=== PATIENT | female | born 1955 | race African-American/Black ===

== ENCOUNTER 2016-05-30 00:02 | Inpatient (IN) | payer OTHER ==
[~2016-05-30] VITALS: Ht 168.9 cm; Wt 58.1 kg
[2016-05-30 00:28] LABS: BASO % 0 % (0-3); EOS % 0 % (0-3); HEMATOCRIT 35.8 % (36.0-47.0); LYMPH # 0.6 x10^3/uL (1.0-4.8); LYMPH % 17 % (24-48); MEAN CORPUSCULAR HEMOGLOBIN 34 pg (25-35); MEAN CORPUSCULAR HGB CONC 34 g/dL (31-37); MEAN CORPUSCULAR VOLUME 102 fL (79-100); MONO % 14 % (0-9); NEUT % 68 % (31-73); PLATELET COUNT 166 x10^3/uL (140-400); RED BLOOD COUNT 3.53 x10^6/uL (3.50-5.40); RED CELL DISTRIBUTION WIDTH 13.1 % (11.5-14.5); WHITE BLOOD COUNT 3.6 x10^3/uL (4.0-11.0)
[2016-05-30 00:40] LABS: GFR 56.2; POTASSIUM 3.5 mmol/L (3.5-5.1)
[2016-05-30] MEDS ORDERED: IV NORMAL SALINE 1000ML BAG 1,000 ML IV ONE (00:45)
--- NOTE | 2016-05-30 00:55 | PHYS DOC ---
Past Medical History Past Medical History: Schizophrenia Additional Past Medical Histor: PARANOID SCHIZO Past Surgical History: No Surgical History Alcohol Use: Occasionally Drug Use: None Adult General Chief Complaint Chief Complaint: WEAKNESS/GENERALIZED HPI HPI 61-year-old female presents by EMS for ongoing weakness and cough for the last several days. She does state generalized myalgias as well. She denies any significant abdominal pain. She denies any chest pain or shortness of breath. She does states she has history of prediabetes and has multiple psychiatric comorbidities. She states she's had weakness when she tries to ambulate over the last several days. She denies any sick contacts. She does state she's been able to eat and drink. She denies any nausea or vomiting. Review of Systems Review of Systems Constitutional: Denies fever or chills [] Eyes: Denies change in visual acuity, redness, or eye pain [] HENT: Denies nasal congestion or sore throat [] Respiratory: Denies cough or shortness of breath [] Cardiovascular: No additional information not addressed in HPI [] GI: Denies abdominal pain, nausea, vomiting, bloody stools or diarrhea [] : Denies dysuria or hematuria [] Musculoskeletal: Denies back pain or joint pain [] Integument: Denies rash or skin lesions [] Neurologic: Denies headache, focal weakness or sensory changes [] Endocrine: Denies polyuria or polydipsia [] Current Medications Current Medications Current Medications Medications (Trade) Dose Ordered Sig/Tyler Start Time Stop Time Status Last Admin Dose Admin Acetaminophen 650 mg 650 mg PRN Q4HRS PRN 05/30/16 02:15 05/31/16 02:14 UNV Ceftriaxone Sodium/Sodium Chloride (Rocephin/Iv Sodium Chloride 0.9% 50ml) 50 ml @ 100 mls/hr Q24H 05/30/16 02:15 UNV Ketorolac Tromethamine (Toradol) 30 mg 1X ONCE 05/30/16 01:00 05/30/16 01:01 DC 05/30/16 00:52 30 MG Ondansetron HCl 4 mg 4 mg PRN Q8HRS PRN 05/30/16 02:15 05/31/16 02:14 UNV Oseltamivir Phosphate (Tamiflu) 75 mg BID 05/30/16 09:00 06/04/16 08:59 UNV Sodium Chloride (Iv Sodium Chloride 0.9% 1000ml Bag) 1,000 ml @ 100 mls/hr Q10H 05/30/16 02:02 05/31/16 02:01 UNV Allergies Allergies Allergies Coded Allergies Type Severity Reaction Last Updated Verified No Known Drug Allergies 05/30/16 No Physical Exam Physical Exam Constitutional: Well developed, well nourished, no acute distress, non-toxic appearance. [] HENT: Normocephalic, atraumatic, bilateral external ears normal, oropharynx moist, no oral exudates, nose normal. [] Eyes: PERRLA, EOMI, conjunctiva normal, no discharge. [] Neck: Normal range of motion, no tenderness, supple, no stridor. [] Cardiovascular:Heart rate regular rhythm, no murmur [] Lungs & Thorax: Bilateral breath sounds clear to auscultation [] Abdomen: Bowel sounds normal, soft, no tenderness, no masses, no pulsatile masses. [] Skin: Warm, dry, no erythema, no rash. [] Back: No tenderness, no CVA tenderness. [] Extremities: No tenderness, no cyanosis, no clubbing, ROM intact, no edema. [] Neurologic: Alert and oriented X 3, normal motor function, normal sensory function, no focal deficits noted. [] Psychologic: Affect normal, judgement normal, mood normal. [] Current Patient Data Vital Signs Vital Signs Date Time Temp Pulse Resp B/P Pulse Ox O2 Delivery O2 Flow Rate FiO2 05/30/16 00:05 99.1 105 16 158/82 96 Room Air 99.1 Lab Values Laboratory Tests Test 05/30/16 00:15 05/30/16 00:55 White Blood Count 3.6x10^3/uL (4.0-11.0) L Red Blood Count 3.53x10^6/uL (3.50-5.40) Hemoglobin 12.0g/dL (12.0-15.5) Hematocrit 35.8% (36.0-47.0) L Mean Corpuscular Volume 102fL (79-100) H Mean Corpuscular Hemoglobin 34pg (25-35) Mean Corpuscular Hemoglobin Concent 34g/dL (31-37) Red Cell Distribution Width 13.1% (11.5-14.5) Platelet Count 166x10^3/uL (140-400) Neutrophils (%) (Auto) 68% (31-73) Lymphocytes (%) (Auto) 17% (24-48) L Monocytes (%) (Auto) 14% (0-9) H Eosinophils (%) (Auto) 0% (0-3) Basophils (%) (Auto) 0% (0-3) Neutrophils # (Auto) 2.4x10^3uL (1.8-7.7) Lymphocytes # (Auto) 0.6x10^3/uL (1.0-4.8) L Monocytes # (Auto) 0.5x10^3/uL (0.0-1.1) Eosinophils # (Auto) 0.0x10^3/uL (0.0-0.7) Basophils # (Auto) 0.0x10^3/uL (0.0-0.2) Sodium Level 134mmol/L (136-145) L Potassium Level 3.5mmol/L (3.5-5.1) Chloride Level 99mmol/L (98-107) Carbon Dioxide Level 21mmol/L (21-32) Anion Gap 14 (6-14) Blood Urea Nitrogen 7mg/dL (7-20) Creatinine 1.0mg/dL (0.6-1.0) Estimated GFR (Cockcroft-Gault) 56.2 Glucose Level 95mg/dL (70-99) Calcium Level 9.0mg/dL (8.5-10.1) Troponin I Quantitative < 0.017ng/mL (0.000-0.055) Urine Collection Type U cath Urine Color Yellow Urine Clarity Clear Urine pH 6.5 Urine Specific [place] 1.020 Urine Protein Negativemg/dL (NEG-TRACE) Urine Glucose (UA) Negativemg/dL (NEG) Urine Ketones (Stick) Tracemg/dL (NEG) Urine Blood Negative (NEG) Urine Nitrite Positive (NEG) Urine Bilirubin Negative (NEG) Urine Urobilinogen Dipstick 0.2mg/dL (0.2 mg/dL) Urine Leukocyte Esterase Small (NEG) Urine RBC Occ/HPF (0-2) Urine WBC 5-10/HPF (0-4) Urine Squamous Epithelial Cells Mod/LPF Urine Bacteria Many/HPF (0-FEW) Urine Hyaline Casts Moderate/HPF Urine Mucus Mod/LPF Influenza Type A Antigen Positive (NEGATIVE) Influenza Type B Antigen Negative (NEGATIVE) Laboratory Tests 05/30/16 00:15 Laboratory Tests 05/30/16 00:15 EKG EKG EKG as interpreted by me shows sinus tachycardia with rate of 104 bpm. There is some artifact seen on this EKG but there are no obvious acute ST findings. Radiology/Procedures Radiology/Procedures One view of the chest as interpreted by me does not reveal an acute cardiopulmonary process. Course & Med Decision Making Course & Med Decision Making Pertinent Labs and Imaging studies reviewed. (See chart for details) this 61- year-old female with ongoing weakness and cough for the last several days will obtain IV blood work and a fluid bolus as well as flu swabs and a urinalysis. Her EKG does not reveal any acute signs of ischemia and her portable 1 view of her chest did not reveal any acute abnormalities. Patient's influenza swab was positive for influenza type A. A urinalysis demonstrates a UTI. A dose of IV Rocephin was given for her UTI as well as Tamiflu. I'll be admitting her for both of these diagnoses. I discussed the need for admission with the hospitalist, Dr. Mack who agreed with the admission. As for her laboratory workup was unremarkable. Dragon Disclaimer Dragon Disclaimer This electronic medical record was generated, in whole or in part, using a voice recognition dictation system. Departure Departure Impression: Primary Impression: Influenza A Additional Impression: Urinary tract infection Disposition: ADMITTED INPATIENT Admitting Physician: Deborah Mack Condition: STABLE Problem Qualifiers ELIU MOORE DO May 30, 2016 00:55
[2016-05-30] MEDS ORDERED: KETOROLAC TROMETHAMINE 30 MG/ML SYRINGE. IV ONE (01:00)
[2016-05-30 01:44] LABS: BILIRUBIN,URINE NEGATIVE (NEG); GLUCOSE,URINE NEGATIVE (NEG); NITRITE,URINE POSITIVE (NEG); PH,URINE 6.5; PROTEIN,URINE NEGATIVE (NEG-TRACE); UROBILINOGEN,URINE 0.2 mg/dL (0.2 mg/dL)
[2016-05-30 01:52] LABS: BACTERIA,URINE MANY /HPF (0-FEW); RBC,URINE OCC /HPF (0-2); SQUAMOUS EPITHELIAL CELL,UR MOD /LPF
[2016-05-30 01:57] LABS: OBC FLU VALID
[2016-05-30] MEDS ORDERED: ACETAMINOPHEN 325 MG TABLET. PO PRN (02:15)
[2016-05-30] MEDS ORDERED: ONDANSETRON PF 4 MG/2 ML VIAL. IV PRN (02:15)
[2016-05-30] MEDS ORDERED: CEFTRIAXONE SODIUM 1 GM in IV NORMAL SALINE 50ML 50 ML IV ONE (02:30)
[2016-05-30] MEDS: OSELTAMIVIR 75 MG CAPSULE PO SCH ×3 (02:35→20:43)
[2016-05-30 03:00] VITALS: BP 126/85
[2016-05-30] MEDS: IV NORMAL SALINE 1000ML BAG 1,000 ML IV SCH ×3 (04:32→17:49)
[2016-05-30 07:00] VITALS: BP 144/82
--- NOTE | 2016-05-30 07:36 | RAD ---
Single view chest History:weakness An AP view of the chest is submitted. Comparison: None. Findings: There is no significant infiltrate, pleural effusion, or pneumothorax. The pericardial cardiac silhouette is upper limits of normal. There is atherosclerotic calcification near aortic arch. The trachea is in the midline. No acute osseous abnormality is identified. Impression: There is no evidence of acute cardiopulmonary disease.
[2016-05-30 11:00] VITALS: BP 154/96
--- NOTE | 2016-05-30 12:20 | EKG ---
[facility] [address] [place] [address] Test Date: 2016-05-30 Test Time: 00:26:04 Pat Name: THUY FERGUSON Department: Room: 578 1 Gender: F [employer]: : [id number] Requested By: ELIU MOORE Order Number: [id number] Reading MD: Marian Melara Measurements Intervals [place] Rate: 104 P: 26 MS: 166 QRS: 48 QRSD: 76 T: 62 QT: 320 QTc: 427 Interpretive Statements SINUS TACHYCARDIA LEFT ATRIAL ABNORMALITY ABNORMAL ECG RI6.01 No previous ECG available for comparison Electronically Signed On 05-30-2016 19:16:58 PERSONNEL REPRESENTATIVE by Marian Melara
[2016-05-30 15:45] VITALS: BP 146/84
[2016-05-30 19:00] VITALS: BP 148/81
--- NOTE | 2016-05-30 19:45 | HP ---
ADMIT DATE: 05/30/2016 CHIEF COMPLAINT: Weakness. HISTORY OF PRESENT ILLNESS: The patient is a pleasant 61-year-old female presents with weakness been occurring for several days. She has myalgia, abdominal pain and had some nausea. While in the ER, she is noted to have influenza A with serology testing. I have discussed the case with ER physician. We are going to admit the patient with consultation to infectious disease. PAST MEDICAL HISTORY: Schizophrenia. ALLERGIES: None. FAMILY HISTORY: Diabetes. SOCIAL HISTORY: She does not drink, smoke or take drugs. MEDICATIONS: Reviewed, please refer to the MRAD. REVIEW OF SYSTEMS: GENERAL: Complaints of weakness. SKIN: No bruising, hair changes or rashes. EYES: No blurred, double or loss of vision. NOSE AND THROAT: No history of nosebleeds, hoarseness or sore throat. HEART: No history of palpitations, chest pain or shortness of breath on exertion. LUNGS: Denies cough, hemoptysis, wheezing or shortness of breath. GASTROINTESTINAL: Denies changes in appetite, nausea, vomiting, diarrhea or constipation. GENITOURINARY: No history of frequency, urgency, hesitancy or nocturia. NEUROLOGIC: Denies history of numbness, tingling, tremor or weakness. PSYCHIATRIC: No history of panic, anxiety or depression. ENDOCRINE: No history of heat or cold intolerance, polyuria or polydipsia. EXTREMITIES: Denies muscle weakness, joint pain, pain on walking or stiffness. PHYSICAL EXAMINATION: VITAL SIGNS: Temperature 100.4, pulse 74, respirations 18, blood pressure 114/91. GENERAL: She is awake. HEART: Distant S1, S2. LUNGS: Coarse. ABDOMEN: Soft, positive bowel sounds. EXTREMITIES: No edema. SKIN: No rashes. PSYCHIATRIC: She is depressed. VASCULAR: Good capillary refill. ENDOCRINE: No thyromegaly. LYMPHATICS: No cervical nodes. HEMATOPOIETIC: No bruising. LABORATORY DATA: Serology was positive for influenza A. Hematology: White cells 3.6, hemoglobin 12, platelets 166. Electrolytes: Sodium 134. The other electrolytes are all normal. Troponin is 0. ASSESSMENT AND PLAN: Influenza with incidental finding of urinary tract infection. The patient has been admitted. We will start IV antibiotics, p.o. Tamiflu, consult Infectious Disease. Continue home medicines, frequent labs, PT, OT. NIAL Manish MOHAN DO DR: Christy JOB#: [id number] / [id number]
[2016-05-30] MEDS: GUAIFENESIN DM 200MG/20MG 10 ML SYRUP. PO PRN (22:49)
[2016-05-30 23:00] VITALS: BP 170/106
[2016-05-31 03:00] VITALS: BP 149/98
[2016-05-31] MEDS: GUAIFENESIN DM 200MG/20MG 10 ML SYRUP. PO PRN ×3 (05:36→21:50)
[2016-05-31] MEDS: CEFTRIAXONE SODIUM 1 GM in IV NORMAL SALINE 50ML 50 ML IV SCH (05:37)
[2016-05-31 07:00] VITALS: BP 115/72
[2016-05-31 07:30] LABS: BASO % 1 % (0-3); EOS % 0 % (0-3); HEMATOCRIT 31.9 % (36.0-47.0); HEMOGLOBIN 10.8 g/dL (12.0-15.5); LYMPH # 1.1 x10^3/uL (1.0-4.8); LYMPH % 32 % (24-48); MEAN CORPUSCULAR HEMOGLOBIN 35 pg (25-35); MEAN CORPUSCULAR HGB CONC 34 g/dL (31-37); MEAN CORPUSCULAR VOLUME 102 fL (79-100); MONO % 12 % (0-9); NEUT % 55 % (31-73); PLATELET COUNT 143 x10^3/uL (140-400); RED BLOOD COUNT 3.12 x10^6/uL (3.50-5.40); RED CELL DISTRIBUTION WIDTH 12.8 % (11.5-14.5); WHITE BLOOD COUNT 3.3 x10^3/uL (4.0-11.0)
[2016-05-31 07:36] LABS: CALCIUM 8.5 mg/dL (8.5-10.1); CREATININE 0.8 mg/dL (0.6-1.0); GFR 87.9; POTASSIUM 3.6 mmol/L (3.5-5.1)
[2016-05-31] MEDS: OSELTAMIVIR 75 MG CAPSULE PO SCH ×2 (08:41→21:50)
[2016-05-31 11:00] VITALS: BP 113/70
--- NOTE | 2016-05-31 11:39 | PDOC ---
Infectious Disease Note Vital Sign Vital Signs Vital Signs Date Time Temp Pulse Resp B/P Pulse Ox O2 Delivery O2 Flow Rate FiO2 05/31/16 08:00 Room Air 05/31/16 07:00 100.0 93 18 115/72 100 100.0 Labs Lab Laboratory Tests Test 05/31/16 07:05 White Blood Count 3.3x10^3/uL (4.0-11.0) Red Blood Count 3.12x10^6/uL (3.50-5.40) Hemoglobin 10.8g/dL (12.0-15.5) Hematocrit 31.9% (36.0-47.0) Mean Corpuscular Volume 102fL (79-100) Mean Corpuscular Hemoglobin 35pg (25-35) Mean Corpuscular Hemoglobin Concent 34g/dL (31-37) Red Cell Distribution Width 12.8% (11.5-14.5) Platelet Count 143x10^3/uL (140-400) Neutrophils (%) (Auto) 55% (31-73) Lymphocytes (%) (Auto) 32% (24-48) Monocytes (%) (Auto) 12% (0-9) Eosinophils (%) (Auto) 0% (0-3) Basophils (%) (Auto) 1% (0-3) Neutrophils # (Auto) 1.8x10^3uL (1.8-7.7) Lymphocytes # (Auto) 1.1x10^3/uL (1.0-4.8) Monocytes # (Auto) 0.4x10^3/uL (0.0-1.1) Eosinophils # (Auto) 0.0x10^3/uL (0.0-0.7) Basophils # (Auto) 0.0x10^3/uL (0.0-0.2) Sodium Level 140mmol/L (136-145) Potassium Level 3.6mmol/L (3.5-5.1) Chloride Level 107mmol/L (98-107) Carbon Dioxide Level 20mmol/L (21-32) Anion Gap 13 (6-14) Blood Urea Nitrogen 6mg/dL (7-20) Creatinine 0.8mg/dL (0.6-1.0) Estimated GFR (Cockcroft-Gault) 87.9 Glucose Level 95mg/dL (70-99) Calcium Level 8.5mg/dL (8.5-10.1) Objective Assessment Influenza A UTI Plan Plan of Care agree with rocephine and tamiflu supportive care check culture soon to d/c NIDIA ROGEL MD May 31, 2016 11:39
--- NOTE | 2016-05-31 11:42 | PDOC ---
PROGRESS NOTES Chief Complaint Chief Complaint 1. Influenza A positive 2. UTI 3. Generalized weakness and fatigue 4. Myalgia 5. Abdominal pain 6. Nausea History of Present Illness History of Present Illness Pt awake, alert, and oriented sitting up in her chair watching TV when seen this AM. Pt states that she is feeling 'better" but not completely recovered. Pt denies any CP or SOB. Pt states that she feels like she is getting some of her strength back. VSS- All questions and concerns answered and addressed. Vitals Vitals Vital Signs Date Time Temp Pulse Resp B/P Pulse Ox O2 Delivery O2 Flow Rate FiO2 05/31/16 08:00 Room Air 05/31/16 07:00 100.0 93 18 115/72 100 100.0 Physical Exam General: Alert, Oriented X3, Cooperative, No acute distress Heart: Regular rate, Normal S1, Normal S2, No murmurs Lungs: Clear Abdomen: Normal bowel sounds, Soft, No tenderness, No hepatosplenomegaly, No masses Extremities: No clubbing, No cyanosis, No edema, Normal pulses Skin: No rashes, No breakdown, No significant lesion Labs LABS Laboratory Tests Test 05/31/16 07:05 White Blood Count 3.3x10^3/uL (4.0-11.0) Red Blood Count 3.12x10^6/uL (3.50-5.40) Hemoglobin 10.8g/dL (12.0-15.5) Hematocrit 31.9% (36.0-47.0) Mean Corpuscular Volume 102fL (79-100) Mean Corpuscular Hemoglobin 35pg (25-35) Mean Corpuscular Hemoglobin Concent 34g/dL (31-37) Red Cell Distribution Width 12.8% (11.5-14.5) Platelet Count 143x10^3/uL (140-400) Neutrophils (%) (Auto) 55% (31-73) Lymphocytes (%) (Auto) 32% (24-48) Monocytes (%) (Auto) 12% (0-9) Eosinophils (%) (Auto) 0% (0-3) Basophils (%) (Auto) 1% (0-3) Neutrophils # (Auto) 1.8x10^3uL (1.8-7.7) Lymphocytes # (Auto) 1.1x10^3/uL (1.0-4.8) Monocytes # (Auto) 0.4x10^3/uL (0.0-1.1) Eosinophils # (Auto) 0.0x10^3/uL (0.0-0.7) Basophils # (Auto) 0.0x10^3/uL (0.0-0.2) Sodium Level 140mmol/L (136-145) Potassium Level 3.6mmol/L (3.5-5.1) Chloride Level 107mmol/L (98-107) Carbon Dioxide Level 20mmol/L (21-32) Anion Gap 13 (6-14) Blood Urea Nitrogen 6mg/dL (7-20) Creatinine 0.8mg/dL (0.6-1.0) Estimated GFR (Cockcroft-Gault) 87.9 Glucose Level 95mg/dL (70-99) Calcium Level 8.5mg/dL (8.5-10.1) Review of Systems Review of Systems Patient complaint of fatigue Patient complaint of hunger Assessment and Plan Assessmemt and Plan Problems Medical Problems: (1) Influenza A Status: Acute (2) Influenza A Status: Acute (3) Urinary tract infection Status: Acute (4) UTI (urinary tract infection) Status: Acute Assessment: 1. Influenza A positive 2. UTI 3. Generalized weakness and fatigue 4. Myalgia 5. Abdominal pain 6. Nausea Plan: Continue to monitor the patient per floor protocol Continue to monitor daily labs- CBC, BMP, BUN, Cr Daily PTOT Appreciate ID input and recommendations Continue IV Rocephin Continue Tamiflu course DW RN Problems: Comment Review of Relevant I have reviewed the following items promise (where applicable) has been applied. Labs Laboratory Tests Test 05/30/16 00:15 05/30/16 00:55 05/31/16 07:05 White Blood Count 3.6x10^3/uL (4.0-11.0) 3.3x10^3/uL (4.0-11.0) Red Blood Count 3.53x10^6/uL (3.50-5.40) 3.12x10^6/uL (3.50-5.40) Hemoglobin 12.0g/dL (12.0-15.5) 10.8g/dL (12.0-15.5) Hematocrit 35.8% (36.0-47.0) 31.9% (36.0-47.0) Mean Corpuscular Volume 102fL (79-100) 102fL (79-100) Mean Corpuscular Hemoglobin 34pg (25-35) 35pg (25-35) Mean Corpuscular Hemoglobin Concent 34g/dL (31-37) 34g/dL (31-37) Red Cell Distribution Width 13.1% (11.5-14.5) 12.8% (11.5-14.5) Platelet Count 166x10^3/uL (140-400) 143x10^3/uL (140-400) Neutrophils (%) (Auto) 68% (31-73) 55% (31-73) Lymphocytes (%) (Auto) 17% (24-48) 32% (24-48) Monocytes (%) (Auto) 14% (0-9) 12% (0-9) Eosinophils (%) (Auto) 0% (0-3) 0% (0-3) Basophils (%) (Auto) 0% (0-3) 1% (0-3) Neutrophils # (Auto) 2.4x10^3uL (1.8-7.7) 1.8x10^3uL (1.8-7.7) Lymphocytes # (Auto) 0.6x10^3/uL (1.0-4.8) 1.1x10^3/uL (1.0-4.8) Monocytes # (Auto) 0.5x10^3/uL (0.0-1.1) 0.4x10^3/uL (0.0-1.1) Eosinophils # (Auto) 0.0x10^3/uL (0.0-0.7) 0.0x10^3/uL (0.0-0.7) Basophils # (Auto) 0.0x10^3/uL (0.0-0.2) 0.0x10^3/uL (0.0-0.2) Sodium Level 134mmol/L (136-145) 140mmol/L (136-145) Potassium Level 3.5mmol/L (3.5-5.1) 3.6mmol/L (3.5-5.1) Chloride Level 99mmol/L (98-107) 107mmol/L (98-107) Carbon Dioxide Level 21mmol/L (21-32) 20mmol/L (21-32) Anion Gap 14 (6-14) 13 (6-14) Blood Urea Nitrogen 7mg/dL (7-20) 6mg/dL (7-20) Creatinine 1.0mg/dL (0.6-1.0) 0.8mg/dL (0.6-1.0) Estimated GFR (Cockcroft-Gault) 56.2 87.9 Glucose Level 95mg/dL (70-99) 95mg/dL (70-99) Calcium Level 9.0mg/dL (8.5-10.1) 8.5mg/dL (8.5-10.1) Troponin I Quantitative < 0.017ng/mL (0.000-0.055) Urine Collection Type U cath Urine Color Yellow Urine Clarity Clear Urine pH 6.5 Urine Specific [place] 1.020 Urine Protein Negativemg/dL (NEG-TRACE) Urine Glucose (UA) Negativemg/dL (NEG) Urine Ketones (Stick) Tracemg/dL (NEG) Urine Blood Negative (NEG) Urine Nitrite Positive (NEG) Urine Bilirubin Negative (NEG) Urine Urobilinogen Dipstick 0.2mg/dL (0.2 mg/dL) Urine Leukocyte Esterase Small (NEG) Urine RBC Occ/HPF (0-2) Urine WBC 5-10/HPF (0-4) Urine Squamous Epithelial Cells Mod/LPF Urine Bacteria Many/HPF (0-FEW) Urine Hyaline Casts Moderate/HPF Urine Mucus Mod/LPF Influenza Type A Antigen Positive (NEGATIVE) Influenza Type B Antigen Negative (NEGATIVE) Laboratory Tests Test 05/31/16 07:05 White Blood Count 3.3x10^3/uL (4.0-11.0) Red Blood Count 3.12x10^6/uL (3.50-5.40) Hemoglobin 10.8g/dL (12.0-15.5) Hematocrit 31.9% (36.0-47.0) Mean Corpuscular Volume 102fL (79-100) Mean Corpuscular Hemoglobin 35pg (25-35) Mean Corpuscular Hemoglobin Concent 34g/dL (31-37) Red Cell Distribution Width 12.8% (11.5-14.5) Platelet Count 143x10^3/uL (140-400) Neutrophils (%) (Auto) 55% (31-73) Lymphocytes (%) (Auto) 32% (24-48) Monocytes (%) (Auto) 12% (0-9) Eosinophils (%) (Auto) 0% (0-3) Basophils (%) (Auto) 1% (0-3) Neutrophils # (Auto) 1.8x10^3uL (1.8-7.7) Lymphocytes # (Auto) 1.1x10^3/uL (1.0-4.8) Monocytes # (Auto) 0.4x10^3/uL (0.0-1.1) Eosinophils # (Auto) 0.0x10^3/uL (0.0-0.7) Basophils # (Auto) 0.0x10^3/uL (0.0-0.2) Sodium Level 140mmol/L (136-145) Potassium Level 3.6mmol/L (3.5-5.1) Chloride Level 107mmol/L (98-107) Carbon Dioxide Level 20mmol/L (21-32) Anion Gap 13 (6-14) Blood Urea Nitrogen 6mg/dL (7-20) Creatinine 0.8mg/dL (0.6-1.0) Estimated GFR (Cockcroft-Gault) 87.9 Glucose Level 95mg/dL (70-99) Calcium Level 8.5mg/dL (8.5-10.1) Medications Current Medications Sodium Chloride (Iv Sodium Chloride 0.9% 1000ml Bag) 1,000 ml @ 1,000 mls/hr 1X ONCE IV Last administered on 05/30/16 00:52; Start 05/30/16 at 00:45; Stop 05/30/16 at 01:44; Status DC Ketorolac Tromethamine (Toradol) 30 mg 1X ONCE IV Last administered on 00:52; Start 05/30/16 at 01:00; Stop 05/30/16 at 01:01; Status DC Oseltamivir Phosphate (Tamiflu) 75 mg BID PO Last administered on 05/31/16 08: 41; Start 05/30/16 at 02:15; Stop 06/04/16 at 02:14 Ondansetron HCl 4 mg 4 mg PRN Q8HRS PRN IV NAUSEA/VOMITING; Start 05/30/16 at 02:15; Stop 05/31/16 at 02:14; Status DC Sodium Chloride (Iv Sodium Chloride 0.9% 1000ml Bag) 1,000 ml @ 100 mls/hr Q10H IV Last administered on 05/30/16 17:49; Start 05/30/16 at 02:15; Stop at 02:14; Status DC Acetaminophen 650 mg 650 mg PRN Q4HRS PRN PO FEVER Last administered on 13:40; Start 05/30/16 at 02:15; Stop 05/31/16 at 02:14; Status DC Ceftriaxone Sodium 1 gm/ Sodium Chloride 50 ml @ 100 mls/hr Q24H IV Last administered on 05/31/16 05:37; Start 05/31/16 at 06:00 Ceftriaxone Sodium/Sodium Chloride (Rocephin/Iv Sodium Chloride 0.9% 50ml) 50 ml @ 100 mls/hr ONCE ONCE IV Last administered on 05/30/16 04:32; Start 04/03 at 02:30; Stop 05/30/16 at 03:05; Status DC Guaifenesin (Robitussin Dm) 10 ml PRN Q6HRS PRN PO COUGH Last administered on 05:36; Start 05/30/16 at 22:45 Vitals/I & O Vital Sign - Last 24 Hours 05/30/16 05/30/16 05/30/16 05/30/16 15:45 19:00 20:21 23:00 Temp 99.7 98.4 99.7 99.7 98.4 99.7 Pulse 80 87 91 Resp 20 18 20 B/P 146/84 148/81 170/106 Pulse Ox 97 95 97 O2 Delivery Room Air Room Air 05/31/16 05/31/16 05/31/16 03:00 07:00 08:00 Temp 98.0 100.0 98.0 100.0 Pulse 93 93 Resp 18 18 B/P 149/98 115/72 Pulse Ox 97 100 O2 Delivery Room Air Room Air Intake and Output 05/30/16 05/30/16 05/31/16 15:00 23:00 07:00 Intake Total 840 ml 520 ml Output Total 150 ml Balance 840 ml 520 ml -150 ml JORDAN MOHAN III DO May 31, 2016 11:42
[2016-05-31 15:00] VITALS: BP 115/69
[2016-05-31 19:00] VITALS: BP 192/91
[2016-05-31 23:19] VITALS: BP 180/104
[2016-06-01 03:00] VITALS: BP 172/99
[2016-06-01] MEDS: CEFTRIAXONE SODIUM 1 GM in IV NORMAL SALINE 50ML 50 ML IV SCH (05:23)
[2016-06-01] MEDS: MAG HYDROX/ALUMINUM HYD/SIMETH 30 ML ORAL.SUSP PO PRN ×2 (06:22→23:50)
[2016-06-01 07:00] VITALS: BP 181/91
[2016-06-01 07:12] LABS: BASO % 1 % (0-3); EOS % 0 % (0-3); HEMATOCRIT 33.6 % (36.0-47.0); HEMOGLOBIN 11.2 g/dL (12.0-15.5); LYMPH # 0.9 x10^3/uL (1.0-4.8); LYMPH % 28 % (24-48); MEAN CORPUSCULAR HEMOGLOBIN 34 pg (25-35); MEAN CORPUSCULAR HGB CONC 33 g/dL (31-37); MEAN CORPUSCULAR VOLUME 102 fL (79-100); MONO % 13 % (0-9); NEUT % 58 % (31-73); PLATELET COUNT 148 x10^3/uL (140-400); RED BLOOD COUNT 3.31 x10^6/uL (3.50-5.40); RED CELL DISTRIBUTION WIDTH 12.7 % (11.5-14.5); WHITE BLOOD COUNT 3.3 x10^3/uL (4.0-11.0)
[2016-06-01 07:19] LABS: CALCIUM 8.6 mg/dL (8.5-10.1); CREATININE 0.8 mg/dL (0.6-1.0); GFR 87.9; POTASSIUM 3.5 mmol/L (3.5-5.1)
--- NOTE | 2016-06-01 08:55 | CONS ---
DATE OF CONSULTATION: REQUESTING PHYSICIAN: Dr. Deborah Mack. REASON FOR CONSULTATION: Influenza and UTI. HISTORY OF PRESENT ILLNESS: This is a 61-year-old -[place] female who presented with generalized weakness, not feeling well and had fever. The patient was diagnosed with influenza A positive, also, has mild UTI. She did not have any urinary symptoms, denies any nausea, vomiting, diarrhea. Denies any headache or visual symptoms. The patient has been started on Rocephin and Tamiflu. PAST MEDICAL HISTORY: Positive for paranoid schizophrenia. No other significant medical history. SOCIAL HISTORY: Negative for smoking, alcohol, illicit drug use. ALLERGIES: No known drug allergies. CURRENT MEDICATIONS: Reviewed. REVIEW OF SYSTEMS: As per HPI, all other systems reviewed are negative. PHYSICAL EXAMINATION: GENERAL: Alert, oriented female, not in distress. VITAL SIGNS: Stable. T-max 100.4. HEENT: Anicteric. NECK: Supple, no JVP, no lymphadenopathy. LUNGS: Clear. HEART: S1, S2 regular. ABDOMEN: Benign. EXTREMITIES: No edema, cyanosis. SKIN: Unremarkable. NEUROLOGIC: The patient is neurologically intact. LABORATORY DATA: White count is 3.3. BUN and creatinine is normal. Influenza screen positive. Urinalysis showed 5-10 wbc. Chest x-ray is negative. IMPRESSION: 1. Influenza A. 2. Urinary tract infection. 3. Schizophrenia. PLAN: Recommend agree with Rocephin and Tamiflu. Supportive care. We will check cultures and soon to be able to change to oral for discharge. Thank you very much, Dr. Mack for giving me the opportunity to participate in this patient's care. NIDIA ROGEL MD DR: CARISA/maranda JOB#: [id number] / [id number]
[2016-06-01] MEDS: OSELTAMIVIR 75 MG CAPSULE PO SCH ×2 (09:22→21:25)
[2016-06-01 11:10] VITALS: BP 180/87
--- NOTE | 2016-06-01 11:26 | PDOC ---
PROGRESS NOTES Chief Complaint Chief Complaint 1. Influenza A positive 2. UTI 3. Generalized weakness and fatigue 4. Myalgia 5. Abdominal pain 6. Nausea History of Present Illness History of Present Illness Pt awake, alert, and oriented sitting up in her chair watching TV when seen this AM. Pt states that she is feeling 'better" but not completely recovered. Pt denies any CP or SOB. Pt states that she feels like she is getting some of her strength back. VSS- All questions and concerns answered and addressed. Vitals Vitals Vital Signs Date Time Temp Pulse Resp B/P Pulse Ox O2 Delivery O2 Flow Rate FiO2 06/01/16 11:10 97.7 73 18 180/87 98 Room Air 97.7 Physical Exam General: Alert, Oriented X3, Cooperative, No acute distress Heart: Regular rate, Normal S1, Normal S2, No murmurs Lungs: Clear Abdomen: Normal bowel sounds, Soft, No tenderness, No hepatosplenomegaly, No masses Extremities: No clubbing, No cyanosis, No edema, Normal pulses Skin: No rashes, No breakdown, No significant lesion Labs LABS Laboratory Tests Test 06/01/16 06:40 White Blood Count 3.3x10^3/uL (4.0-11.0) Red Blood Count 3.31x10^6/uL (3.50-5.40) Hemoglobin 11.2g/dL (12.0-15.5) Hematocrit 33.6% (36.0-47.0) Mean Corpuscular Volume 102fL (79-100) Mean Corpuscular Hemoglobin 34pg (25-35) Mean Corpuscular Hemoglobin Concent 33g/dL (31-37) Red Cell Distribution Width 12.7% (11.5-14.5) Platelet Count 148x10^3/uL (140-400) Neutrophils (%) (Auto) 58% (31-73) Lymphocytes (%) (Auto) 28% (24-48) Monocytes (%) (Auto) 13% (0-9) Eosinophils (%) (Auto) 0% (0-3) Basophils (%) (Auto) 1% (0-3) Neutrophils # (Auto) 1.9x10^3uL (1.8-7.7) Lymphocytes # (Auto) 0.9x10^3/uL (1.0-4.8) Monocytes # (Auto) 0.4x10^3/uL (0.0-1.1) Eosinophils # (Auto) 0.0x10^3/uL (0.0-0.7) Basophils # (Auto) 0.0x10^3/uL (0.0-0.2) Sodium Level 140mmol/L (136-145) Potassium Level 3.5mmol/L (3.5-5.1) Chloride Level 105mmol/L (98-107) Carbon Dioxide Level 21mmol/L (21-32) Anion Gap 14 (6-14) Blood Urea Nitrogen 4mg/dL (7-20) Creatinine 0.8mg/dL (0.6-1.0) Estimated GFR (Cockcroft-Gault) 87.9 Glucose Level 100mg/dL (70-99) Calcium Level 8.6mg/dL (8.5-10.1) Review of Systems Review of Systems Patient complaint of fatigue Patient complaint of hunger Assessment and Plan Assessmemt and Plan Problems Medical Problems: (1) Influenza A Status: Acute (2) Influenza A Status: Acute (3) Urinary tract infection Status: Acute (4) UTI (urinary tract infection) Status: Acute Assessment: 1. Influenza A positive 2. UTI 3. Generalized weakness and fatigue 4. Myalgia 5. Abdominal pain 6. Nausea Plan: Continue to monitor the patient per floor protocol Daily labs- CBC, BMP, BUN, and Cr Daily PTOT Appreciate ID input and recommendations -Continue Rocephin -Continue Tamiflu YASMIN RN Possible DC tomorrow if ok with ID Continue to monitor Vitals Problems: Comment Review of Relevant I have reviewed the following items promise (where applicable) has been applied. Labs Laboratory Tests Test 05/31/16 07:05 06/01/16 06:40 White Blood Count 3.3x10^3/uL (4.0-11.0) 3.3x10^3/uL (4.0-11.0) Red Blood Count 3.12x10^6/uL (3.50-5.40) 3.31x10^6/uL (3.50-5.40) Hemoglobin 10.8g/dL (12.0-15.5) 11.2g/dL (12.0-15.5) Hematocrit 31.9% (36.0-47.0) 33.6% (36.0-47.0) Mean Corpuscular Volume 102fL (79-100) 102fL (79-100) Mean Corpuscular Hemoglobin 35pg (25-35) 34pg (25-35) Mean Corpuscular Hemoglobin Concent 34g/dL (31-37) 33g/dL (31-37) Red Cell Distribution Width 12.8% (11.5-14.5) 12.7% (11.5-14.5) Platelet Count 143x10^3/uL (140-400) 148x10^3/uL (140-400) Neutrophils (%) (Auto) 55% (31-73) 58% (31-73) Lymphocytes (%) (Auto) 32% (24-48) 28% (24-48) Monocytes (%) (Auto) 12% (0-9) 13% (0-9) Eosinophils (%) (Auto) 0% (0-3) 0% (0-3) Basophils (%) (Auto) 1% (0-3) 1% (0-3) Neutrophils # (Auto) 1.8x10^3uL (1.8-7.7) 1.9x10^3uL (1.8-7.7) Lymphocytes # (Auto) 1.1x10^3/uL (1.0-4.8) 0.9x10^3/uL (1.0-4.8) Monocytes # (Auto) 0.4x10^3/uL (0.0-1.1) 0.4x10^3/uL (0.0-1.1) Eosinophils # (Auto) 0.0x10^3/uL (0.0-0.7) 0.0x10^3/uL (0.0-0.7) Basophils # (Auto) 0.0x10^3/uL (0.0-0.2) 0.0x10^3/uL (0.0-0.2) Sodium Level 140mmol/L (136-145) 140mmol/L (136-145) Potassium Level 3.6mmol/L (3.5-5.1) 3.5mmol/L (3.5-5.1) Chloride Level 107mmol/L (98-107) 105mmol/L (98-107) Carbon Dioxide Level 20mmol/L (21-32) 21mmol/L (21-32) Anion Gap 13 (6-14) 14 (6-14) Blood Urea Nitrogen 6mg/dL (7-20) 4mg/dL (7-20) Creatinine 0.8mg/dL (0.6-1.0) 0.8mg/dL (0.6-1.0) Estimated GFR (Cockcroft-Gault) 87.9 87.9 Glucose Level 95mg/dL (70-99) 100mg/dL (70-99) Calcium Level 8.5mg/dL (8.5-10.1) 8.6mg/dL (8.5-10.1) Laboratory Tests Test 06/01/16 06:40 White Blood Count 3.3x10^3/uL (4.0-11.0) Red Blood Count 3.31x10^6/uL (3.50-5.40) Hemoglobin 11.2g/dL (12.0-15.5) Hematocrit 33.6% (36.0-47.0) Mean Corpuscular Volume 102fL (79-100) Mean Corpuscular Hemoglobin 34pg (25-35) Mean Corpuscular Hemoglobin Concent 33g/dL (31-37) Red Cell Distribution Width 12.7% (11.5-14.5) Platelet Count 148x10^3/uL (140-400) Neutrophils (%) (Auto) 58% (31-73) Lymphocytes (%) (Auto) 28% (24-48) Monocytes (%) (Auto) 13% (0-9) Eosinophils (%) (Auto) 0% (0-3) Basophils (%) (Auto) 1% (0-3) Neutrophils # (Auto) 1.9x10^3uL (1.8-7.7) Lymphocytes # (Auto) 0.9x10^3/uL (1.0-4.8) Monocytes # (Auto) 0.4x10^3/uL (0.0-1.1) Eosinophils # (Auto) 0.0x10^3/uL (0.0-0.7) Basophils # (Auto) 0.0x10^3/uL (0.0-0.2) Sodium Level 140mmol/L (136-145) Potassium Level 3.5mmol/L (3.5-5.1) Chloride Level 105mmol/L (98-107) Carbon Dioxide Level 21mmol/L (21-32) Anion Gap 14 (6-14) Blood Urea Nitrogen 4mg/dL (7-20) Creatinine 0.8mg/dL (0.6-1.0) Estimated GFR (Cockcroft-Gault) 87.9 Glucose Level 100mg/dL (70-99) Calcium Level 8.6mg/dL (8.5-10.1) Microbiology 05/30/16 Urine Culture - Final, Complete 05/30/16 Urine Culture Result 1 (FLIP) - Final, Complete 05/30/16 Antimicrobic Susceptibility - Final, Complete Medications Current Medications Sodium Chloride (Iv Sodium Chloride 0.9% 1000ml Bag) 1,000 ml @ 1,000 mls/hr 1X ONCE IV Last administered on 05/30/16 00:52; Start 05/30/16 at 00:45; Stop 05/30/16 at 01:44; Status DC Ketorolac Tromethamine (Toradol) 30 mg 1X ONCE IV Last administered on 00:52; Start 05/30/16 at 01:00; Stop 05/30/16 at 01:01; Status DC Oseltamivir Phosphate (Tamiflu) 75 mg BID PO Last administered on 06/01/16 09: 22; Start 05/30/16 at 02:15; Stop 06/04/16 at 02:14 Ondansetron HCl 4 mg 4 mg PRN Q8HRS PRN IV NAUSEA/VOMITING; Start 05/30/16 at 02:15; Stop 05/31/16 at 02:14; Status DC Sodium Chloride (Iv Sodium Chloride 0.9% 1000ml Bag) 1,000 ml @ 100 mls/hr Q10H IV Last administered on 05/30/16 17:49; Start 05/30/16 at 02:15; Stop at 02:14; Status DC Acetaminophen 650 mg 650 mg PRN Q4HRS PRN PO FEVER Last administered on 13:40; Start 05/30/16 at 02:15; Stop 05/31/16 at 02:14; Status DC Ceftriaxone Sodium 1 gm/ Sodium Chloride 50 ml @ 100 mls/hr Q24H IV Last administered on 06/01/16 05:23; Start 05/31/16 at 06:00 Ceftriaxone Sodium/Sodium Chloride (Rocephin/Iv Sodium Chloride 0.9% 50ml) 50 ml @ 100 mls/hr ONCE ONCE IV Last administered on 05/30/16 04:32; Start 04/03 at 02:30; Stop 05/30/16 at 03:05; Status DC Guaifenesin (Robitussin Dm) 10 ml PRN Q6HRS PRN PO COUGH Last administered on 21:50; Start 05/30/16 at 22:45 Al Hydroxide/Mg Hydroxide (Mylanta Plus Xs) 30 ml PRN Q4HRS PRN PO HEARTBURN / GAS Last administered on 06/01/16 06:22; Start 06/01/16 at 06:15 Vitals/I & O Vital Sign - Last 24 Hours 05/31/16 05/31/16 05/31/16 05/31/16 15:00 19:00 20:00 23:19 Temp 98.7 98.1 98.1 98.7 98.1 98.1 Pulse 94 79 77 Resp 18 B/P 115/69 192/91 180/104 Pulse Ox 100 98 99 O2 Delivery Room Air Room Air Room Air Room Air 06/01/16 06/01/16 06/01/16 06/01/16 03:00 07:00 07:55 11:10 Temp 98.8 97.5 97.7 98.8 97.5 97.7 Pulse 82 82 73 Resp 18 18 B/P 172/99 181/91 180/87 Pulse Ox 99 99 98 O2 Delivery Room Air Room Air Room Air Room Air Intake and Output 05/31/16 05/31/16 06/01/16 15:00 23:00 07:00 Intake Total 240 ml 480 ml Output Total 2 ml 0 ml Balance 240 ml 478 ml 0 ml THI MOHANL K III DO Jun 01, 2016 11:26
--- NOTE | 2016-06-01 11:56 | PDOC ---
Infectious Disease Note Subjective Subjective feeling better ROS ROS GEN: Denies fevers, chills, sweats HEENT: Denies blurred vision, sore throat CV: Denies chest pain RESP: Denies shortness of air, cough GI: Denies n/v/d NEURO: Denies confusion, dizziness MSK: Denies weakness, joint pain/swelling Vital Sign Vital Signs Vital Signs Date Time Temp Pulse Resp B/P Pulse Ox O2 Delivery O2 Flow Rate FiO2 06/01/16 11:10 97.7 73 18 180/87 98 Room Air 97.7 Physical Exam PHYSICAL EXAM GENERAL: NAD, Alert HEENT: PERRL, OC/OP NECK: Supple, no JVD, no LN LUNGS: Clear HEART: S1S2, no gallop, no murmur ABD: Soft, NT, no organomegaly, no rebound EXT: No edema, no cyanosis TRAFFIC RECORDER: Alert, oriented x 3, no focal neurologic deficit SKIN: No rash IV: ok Labs Lab Laboratory Tests Test 06/01/16 06:40 White Blood Count 3.3x10^3/uL (4.0-11.0) Red Blood Count 3.31x10^6/uL (3.50-5.40) Hemoglobin 11.2g/dL (12.0-15.5) Hematocrit 33.6% (36.0-47.0) Mean Corpuscular Volume 102fL (79-100) Mean Corpuscular Hemoglobin 34pg (25-35) Mean Corpuscular Hemoglobin Concent 33g/dL (31-37) Red Cell Distribution Width 12.7% (11.5-14.5) Platelet Count 148x10^3/uL (140-400) Neutrophils (%) (Auto) 58% (31-73) Lymphocytes (%) (Auto) 28% (24-48) Monocytes (%) (Auto) 13% (0-9) Eosinophils (%) (Auto) 0% (0-3) Basophils (%) (Auto) 1% (0-3) Neutrophils # (Auto) 1.9x10^3uL (1.8-7.7) Lymphocytes # (Auto) 0.9x10^3/uL (1.0-4.8) Monocytes # (Auto) 0.4x10^3/uL (0.0-1.1) Eosinophils # (Auto) 0.0x10^3/uL (0.0-0.7) Basophils # (Auto) 0.0x10^3/uL (0.0-0.2) Sodium Level 140mmol/L (136-145) Potassium Level 3.5mmol/L (3.5-5.1) Chloride Level 105mmol/L (98-107) Carbon Dioxide Level 21mmol/L (21-32) Anion Gap 14 (6-14) Blood Urea Nitrogen 4mg/dL (7-20) Creatinine 0.8mg/dL (0.6-1.0) Estimated GFR (Cockcroft-Gault) 87.9 Glucose Level 100mg/dL (70-99) Calcium Level 8.6mg/dL (8.5-10.1) Objective Assessment Influenza A UTI Plan Plan of Care change rocephin to amox tamiflu supportive care check culture soon to d/c NIDIA ROGEL MD Jun 01, 2016 11:56
[2016-06-01 15:30] VITALS: BP 168/98
[2016-06-01] MEDS: GUAIFENESIN DM 200MG/20MG 10 ML SYRUP. PO PRN ×2 (16:37→23:01)
[2016-06-01] MEDS: AMOXICILLIN 250 MG CAPSULE PO SCH ×2 (16:37→21:25)
[2016-06-01 19:00] VITALS: BP 187/90
[2016-06-01 23:00] VITALS: BP 192/97
[2016-06-02 03:00] VITALS: BP 142/77
[2016-06-02 06:59] LABS: BASO % 0 % (0-3); EOS % 0 % (0-3); HEMATOCRIT 31.6 % (36.0-47.0); HEMOGLOBIN 10.8 g/dL (12.0-15.5); LYMPH # 1.1 x10^3/uL (1.0-4.8); LYMPH % 28 % (24-48); MEAN CORPUSCULAR HEMOGLOBIN 34 pg (25-35); MEAN CORPUSCULAR HGB CONC 34 g/dL (31-37); MEAN CORPUSCULAR VOLUME 101 fL (79-100); MONO % 12 % (0-9); NEUT % 59 % (31-73); PLATELET COUNT 153 x10^3/uL (140-400); RED BLOOD COUNT 3.15 x10^6/uL (3.50-5.40); RED CELL DISTRIBUTION WIDTH 12.7 % (11.5-14.5); WHITE BLOOD COUNT 3.9 x10^3/uL (4.0-11.0)
[2016-06-02 07:00] VITALS: BP 128/84
[2016-06-02 07:17] LABS: CALCIUM 8.8 mg/dL (8.5-10.1); CREATININE 0.8 mg/dL (0.6-1.0); GFR 87.9; POTASSIUM 3.5 mmol/L (3.5-5.1)
[2016-06-02] MEDS: AMOXICILLIN 250 MG CAPSULE PO SCH ×2 (09:38→13:33)
[2016-06-02] MEDS: OSELTAMIVIR 75 MG CAPSULE PO SCH (09:38)
[2016-06-02 11:08] VITALS: BP 138/86
--- NOTE | 2016-06-02 11:16 | PDOC ---
Infectious Disease Note Subjective Subjective feeling better ROS ROS GEN: Denies fevers, chills, sweats HEENT: Denies blurred vision, sore throat CV: Denies chest pain RESP: Denies shortness of air, cough GI: Denies n/v/d NEURO: Denies confusion, dizziness MSK: Denies weakness, joint pain/swelling Vital Sign Vital Signs Vital Signs Date Time Temp Pulse Resp B/P Pulse Ox O2 Delivery O2 Flow Rate FiO2 06/02/16 11:08 98.1 69 18 138/86 100 Room Air 98.1 Physical Exam PHYSICAL EXAM GENERAL: NAD, Alert HEENT: PERRL, OC/OP NECK: Supple, no JVD, no LN LUNGS: Clear HEART: S1S2, no gallop, no murmur ABD: Soft, NT, no organomegaly, no rebound EXT: No edema, no cyanosis [employer] SERV[employer] TECHNICIAN: Alert, oriented x 3, no focal neurologic deficit SKIN: No rash IV: ok Labs Lab Laboratory Tests Test 06/02/16 06:08 White Blood Count 3.9x10^3/uL (4.0-11.0) Red Blood Count 3.15x10^6/uL (3.50-5.40) Hemoglobin 10.8g/dL (12.0-15.5) Hematocrit 31.6% (36.0-47.0) Mean Corpuscular Volume 101fL (79-100) Mean Corpuscular Hemoglobin 34pg (25-35) Mean Corpuscular Hemoglobin Concent 34g/dL (31-37) Red Cell Distribution Width 12.7% (11.5-14.5) Platelet Count 153x10^3/uL (140-400) Neutrophils (%) (Auto) 59% (31-73) Lymphocytes (%) (Auto) 28% (24-48) Monocytes (%) (Auto) 12% (0-9) Eosinophils (%) (Auto) 0% (0-3) Basophils (%) (Auto) 0% (0-3) Neutrophils # (Auto) 2.3x10^3uL (1.8-7.7) Lymphocytes # (Auto) 1.1x10^3/uL (1.0-4.8) Monocytes # (Auto) 0.5x10^3/uL (0.0-1.1) Eosinophils # (Auto) 0.0x10^3/uL (0.0-0.7) Basophils # (Auto) 0.0x10^3/uL (0.0-0.2) Sodium Level 140mmol/L (136-145) Potassium Level 3.5mmol/L (3.5-5.1) Chloride Level 104mmol/L (98-107) Carbon Dioxide Level 23mmol/L (21-32) Anion Gap 13 (6-14) Blood Urea Nitrogen 4mg/dL (7-20) Creatinine 0.8mg/dL (0.6-1.0) Estimated GFR (Cockcroft-Gault) 87.9 Glucose Level 95mg/dL (70-99) Calcium Level 8.8mg/dL (8.5-10.1) Objective Assessment Influenza A UTI Plan Plan of Care amox tamiflu supportive care check culture d/c NIDIA Gtz MD Jun 02, 2016 11:16
[2016-06-02] MEDS ORDERED: OSEL75CA PO (12:32)
[2016-06-02] MEDS ORDERED: AMOX250C PO (12:32)
[2016-06-02] MEDS ORDERED: GUAI5SYR PO (12:32)
--- NOTE | 2016-06-02 12:39 | PDOC3 ---
Discharge Summary Visit Information Date of Admission: May 30, 2016 Date of Discharge: Jun 02, 2016 Admitting Diagnosis: sepsis Final Diagnosis sepsis, leukopenia, tachycardia, fever after admit 1. Influenza A positive 2. UTI 3. Generalized weakness and fatigue, acq. and secondary to #1 4. Myalgia 5. Abdominal pain and Nausea Problems Medical Problems: (1) Influenza A Status: Acute (2) Influenza A Status: Acute (3) Urinary tract infection Status: Acute (4) UTI (urinary tract infection) Status: Acute Brief Hospital Course Allergies Allergies Coded Allergies Type Severity Reaction Last Updated Verified No Known Drug Allergies 05/30/16 No Vital Signs Vital Signs Date Time Temp Pulse Resp B/P Pulse Ox O2 Delivery O2 Flow Rate FiO2 06/02/16 11:08 98.1 69 18 138/86 100 Room Air 98.1 Lab Results Laboratory Tests Test 06/01/16 06:40 06/02/16 06:08 White Blood Count 3.3x10^3/uL (4.0-11.0) 3.9x10^3/uL (4.0-11.0) Red Blood Count 3.31x10^6/uL (3.50-5.40) 3.15x10^6/uL (3.50-5.40) Hemoglobin 11.2g/dL (12.0-15.5) 10.8g/dL (12.0-15.5) Hematocrit 33.6% (36.0-47.0) 31.6% (36.0-47.0) Mean Corpuscular Volume 102fL (79-100) 101fL (79-100) Mean Corpuscular Hemoglobin 34pg (25-35) 34pg (25-35) Mean Corpuscular Hemoglobin Concent 33g/dL (31-37) 34g/dL (31-37) Red Cell Distribution Width 12.7% (11.5-14.5) 12.7% (11.5-14.5) Platelet Count 148x10^3/uL (140-400) 153x10^3/uL (140-400) Neutrophils (%) (Auto) 58% (31-73) 59% (31-73) Lymphocytes (%) (Auto) 28% (24-48) 28% (24-48) Monocytes (%) (Auto) 13% (0-9) 12% (0-9) Eosinophils (%) (Auto) 0% (0-3) 0% (0-3) Basophils (%) (Auto) 1% (0-3) 0% (0-3) Neutrophils # (Auto) 1.9x10^3uL (1.8-7.7) 2.3x10^3uL (1.8-7.7) Lymphocytes # (Auto) 0.9x10^3/uL (1.0-4.8) 1.1x10^3/uL (1.0-4.8) Monocytes # (Auto) 0.4x10^3/uL (0.0-1.1) 0.5x10^3/uL (0.0-1.1) Eosinophils # (Auto) 0.0x10^3/uL (0.0-0.7) 0.0x10^3/uL (0.0-0.7) Basophils # (Auto) 0.0x10^3/uL (0.0-0.2) 0.0x10^3/uL (0.0-0.2) Sodium Level 140mmol/L (136-145) 140mmol/L (136-145) Potassium Level 3.5mmol/L (3.5-5.1) 3.5mmol/L (3.5-5.1) Chloride Level 105mmol/L (98-107) 104mmol/L (98-107) Carbon Dioxide Level 21mmol/L (21-32) 23mmol/L (21-32) Anion Gap 14 (6-14) 13 (6-14) Blood Urea Nitrogen 4mg/dL (7-20) 4mg/dL (7-20) Creatinine 0.8mg/dL (0.6-1.0) 0.8mg/dL (0.6-1.0) Estimated GFR (Cockcroft-Gault) 87.9 87.9 Glucose Level 100mg/dL (70-99) 95mg/dL (70-99) Calcium Level 8.6mg/dL (8.5-10.1) 8.8mg/dL (8.5-10.1) Laboratory Tests Test 06/02/16 06:08 White Blood Count 3.9x10^3/uL (4.0-11.0) Red Blood Count 3.15x10^6/uL (3.50-5.40) Hemoglobin 10.8g/dL (12.0-15.5) Hematocrit 31.6% (36.0-47.0) Mean Corpuscular Volume 101fL (79-100) Mean Corpuscular Hemoglobin 34pg (25-35) Mean Corpuscular Hemoglobin Concent 34g/dL (31-37) Red Cell Distribution Width 12.7% (11.5-14.5) Platelet Count 153x10^3/uL (140-400) Neutrophils (%) (Auto) 59% (31-73) Lymphocytes (%) (Auto) 28% (24-48) Monocytes (%) (Auto) 12% (0-9) Eosinophils (%) (Auto) 0% (0-3) Basophils (%) (Auto) 0% (0-3) Neutrophils # (Auto) 2.3x10^3uL (1.8-7.7) Lymphocytes # (Auto) 1.1x10^3/uL (1.0-4.8) Monocytes # (Auto) 0.5x10^3/uL (0.0-1.1) Eosinophils # (Auto) 0.0x10^3/uL (0.0-0.7) Basophils # (Auto) 0.0x10^3/uL (0.0-0.2) Sodium Level 140mmol/L (136-145) Potassium Level 3.5mmol/L (3.5-5.1) Chloride Level 104mmol/L (98-107) Carbon Dioxide Level 23mmol/L (21-32) Anion Gap 13 (6-14) Blood Urea Nitrogen 4mg/dL (7-20) Creatinine 0.8mg/dL (0.6-1.0) Estimated GFR (Cockcroft-Gault) 87.9 Glucose Level 95mg/dL (70-99) Calcium Level 8.8mg/dL (8.5-10.1) Brief Hospital Course Ms. Meek is a 61 old admit for lethargy malaise, fever, + UTI flu pos lethargy and weakness, improved over 3 days cough, improved at DC Pt feels like herself and would like to DC home f.u Dr. Sharmin Verde UTI, zaidi sens E.coli, treat one week All questions answered a Discharge Information Condition at Discharge: Improved Follow Up: Weeks Disposition/Orders: D/C to Home Scheduled Amoxicillin (Amoxicillin) 250 MG PO [id number] Oseltamivir Phosphate (Tamiflu) 75 MG PO BID Scheduled PRN Guaifenesin/Dextromethorphan (Guaifenesin Dm Syrup) 10 ML PO PRN Q6HRS PRN PRN COUGH CHIO NGUYEN MD Jun 02, 2016 12:39
[2016-06-02 14:44] VITALS: BP 128/82
== END 2016-06-02 17:50 | disposition home or self-care (01) | DRG 872 ==
LOC: ER 00:02 → 5 SOUTH 02:06 → ER 02:43
PROVIDERS: ADMIT Internal Medicine; ATTEND Internal Medicine
DX: A41.9 Sepsis, unspecified organism (principal); N39.0 Urinary tract infection, site not specified; F20.0 Paranoid schizophrenia; B96.20 Unspecified Escherichia coli [E. coli] as the cause of diseases classified elsewhere; R73.03 Prediabetes; J10.1 Influenza due to other identified influenza virus with other respiratory manifestations; M79.1 Myalgia; Z83.3 Family history of diabetes mellitus
CPT/HCPCS: 36415; 71010; 80048; 81001; 84484; 85027; 87086; 87186; 87804; 93005; 96361; 96374; J0696; J1885; J7030; 99285-25